=== PATIENT | female | born 1955 | race Caucasian/White ===

== ENCOUNTER → 2016-08-28 | Outpatient (CLI) | payer OTHER ==
--- NOTE | 2016-08-28 08:52 | CT ---
EXAMINATION TYPE: CT abdomen pelvis w con DATE OF EXAM: 08/28/2016 7:25 AM COMPARISON: NONE INDICATION: Ventral hernia DLP: 417.3 mGycm, Automated exposure control for dose reduction was used. CONTRAST: 100 mL of Omnipaque 300. Study performed with Oral Contrast TECHNIQUE: Axial images were obtained from above the diaphragm to the pubic rami in the axial plane a t 5 mm thick sections. Reconstructed images are reviewed on the computer in the coronal plane. FINDINGS: Limited CT sections are obtained the lung bases. The lung bases are clear. CT ABDOMEN: There is a large ventral hernia containing a loop of colon. This extends towards the maryan umbilical region from superiorly. Where the colon enters and exits the opening is 7 cm. No entrapment is evident. Liver: There are numerous hypodensities within the liver compatible with multiple hepatic cysts. Spleen: Normal Pancreas: Normal Adrenal glands: The adrenal glands are normal. Gallbladder: Normal Kidneys: No masses are evident. No hydronephrosis is present. There are cysts at the inferior pole left kidney better visualized on delayed images. Delayed images were obtained through the kidneys, w hich remain unremarkable. Aorta: Vascular calcification is within the aorta. Inferior vena cava: Normal. CT PELVIS: Loops of bowel within the abdomen and pelvis are normal. There are loops of bowel which are incom pletely distended or lack oral contrast limiting their evaluation. Appendix: Normal as visualized. Urinary bladder: Normal. Genitourinary structures: Uterus is normal. Adnexal regions are clear. No free fluid is within the pe lvis. Osseous structures: Old pelvic fractures evident. There may be some nonunion of an anterior left pubi c ramus fracture degenerative changes at sacroiliac joint IMPRESSIONS: 1. Multiple hepatic cyst. 2. Inferior pole left renal cyst. 3. Ventral hernia containing a loop of colon without evidence of obstruction at this time.
== END | disposition home or self-care (01) ==
LOC: RADCTMAIN 06:57
PROVIDERS: ATTEND Surgery
DX: K43.9 Ventral hernia without obstruction or gangrene (principal); N28.1 Cyst of kidney, acquired; K76.89 Other specified diseases of liver
CPT/HCPCS: 74177; Q9967

== ENCOUNTER 2016-09-19 06:26 | Observation (INO) | payer OTHER ==
[2016-09-12 09:52] VITALS: BMI 23.1
[~2016-09-19 06:26] MED LIST: DEXAMETHASONE SOD PHOSPHATE 10 MG/ML 1 ML VIAL IV ONE; FAMOTIDINE 20 MG/2 ML VIAL IV PRN; HEPARIN SODIUM,PORCINE 5,000 UNIT/ML 1 ML VIAL SQ ONE; HYDROmorphone 1 MG/ML 1 ML SYRINGE IVP PRN; LACTATED RINGERS 1,000 ML IV SCH; MIDAZOLAM 2 MG/2 ML VIAL IV PRN; SCOPOLAMINE 1.5MG/72HR PATCH TRANSDERM ONE
[2016-09-19] MEDS: LIDOCAINE 1% 20 ML VIAL (10MG/ML) FOR IV START INTRADERMA PRN ×2 (07:22→07:23)
[2016-09-19] MEDS ORDERED: ONDANSETRON 4 MG/2 ML VIAL IVP ONE (07:23)
[2016-09-19] MEDS ORDERED: ROCURONIUM BROMIDE 10 MG/ML 10 ML VIAL IV ONE (07:51)
[2016-09-19] MEDS ORDERED: HYDROmorphone (PF) 1 MG/ML ONE (07:51)
[2016-09-19] MEDS ORDERED: SUCCINYLCHOLINE CHLORIDE 100 MG/5 ML SYR IV ONE (07:51)
[2016-09-19] MEDS ORDERED: NEOSTIGMINE 1 MG/ML 10 ML VIAL ONE (07:51)
[2016-09-19] MEDS ORDERED: MIDAZOLAM 2 MG/2 ML VIAL ONE (07:51)
[2016-09-19] MEDS ORDERED: LIDOCAINE 1% INJ 10MG/ML (20 ML MDV) ONE (07:51)
[2016-09-19] MEDS ORDERED: GLYCOPYRROLATE 0.2 MG/ML 2 ML VIAL ONE (07:51)
[2016-09-19] MEDS ORDERED: PROPOFOL 10 MG/ML 20 ML VIAL IV ONE (07:51)
[2016-09-19] MEDS ORDERED: fentaNYL (PF) 50 MCG/ML 2 ML AMP ONE (07:51)
[2016-09-19] MEDS: ceFAZolin 2 GM in SODIUM CHLORIDE 0.9% 100 ML IVPB ONE ×2 (08:10→08:21)
[2016-09-19] MEDS ORDERED: BUPIVACAIN-EPI 0.25%-1:200,000 30 ML VIAL SQ ONE ×2 (08:20)
[2016-09-19] MEDS ORDERED: LACTATED RINGERS 1,000 ML IV ONE (09:34)
[2016-09-19] MEDS ORDERED: ONDANSETRON 4 MG/2 ML VIAL IVP PRN (12:23)
[2016-09-19] MEDS: SODIUM CHLORIDE 0.9% 1,000 ML IV SCH (13:38)
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
--- NOTE | 2016-09-19 13:41 | P.DS ---
Providers Date of admission: 09/19/16 Expected date of discharge: 09/20/16 Attending physician: Harriet De La Cruz Primary care physician: [facility] Course: 61 years old female presenting with large upper abdominal incisional hernia containing colon, small bowel and omentum. She underwent extensive lap scopic lysis of adhesions lasting more than 90 minutes and robotic assist ventral hernia repair with mesh. Patient was admitted for 23 hours for pain control. She was started on clear liquid diet and advanced as tolerated. At the time of discharge, patient is tolerating soft diet. She is ambulating in hallways. She is using incentive spirometry. Pain is well controlled Procedures: Laparoscopic extensive lysis of adhesions. Robotic-assisted laparoscopic ventral hernia repair with mesh Patient Condition at Discharge: Good Plan - Discharge Summary New Discharge Prescriptions: Docusate [Colace] 100 mg PO DAILY #30 capsule HYDROcodone/APAP 5-325MG [[place] 5-325] 1 - 2 tab PO Q4H PRN #40 tab PRN Reason: Pain Discharge Medication List Ibuprofen [Motrin] 600 mg PO Q6HR PRN 05/13/16 [History] Cholecalciferol [Vitamin D3] 1,000 unit PO DAILY 09/12/16 [History] Docusate [Colace] 100 mg PO DAILY #30 capsule 09/19/16 [Rx] HYDROcodone/APAP 5-325MG [[place] 5-325] 1 - 2 tab PO Q4H PRN #40 tab 09/19/16 [Rx ] Follow up Appointment(s)/Referral(s): Harriet De La Cruz MD [STAFF PHYSICIAN] - 09/30/16 10:40 am Patient Instructions/Handouts: *Surgery [facility] - (Anesthesia) Discharge Instructions Outpatient Surgery, Ventral Hernia (DC) Activity/Diet/Wound Care/Special Instructions: OK to shower . No soaking bath. No heavy lifting more than 10 lbs for 6 weeks post surgery. No driving while taking narcotics for pain. May use ice packs for local pain relief Take Motrin 600 mg po TID after meals if pain is not controlled Use incentive spirometry 10 times an hour while awake Discharge Disposition: HOME SELF-CARE
[2016-09-19] MEDS: HYDROmorphone 1 MG/ML 1 ML SYRINGE IVP PRN ×2 (16:09→20:31)
[2016-09-19] MEDS: HEPARIN SODIUM,PORCINE 5,000 UNIT/ML 1 ML VIAL SQ SCH (16:10)
[2016-09-19] MEDS: METOCLOPRAMIDE 5 MG/ML 2 ML VIAL IVP SCH (18:08)
[2016-09-19] MEDS: ACETAMINOPHEN IV (For NPO) 1,000 MG in EMPTY BAG 1 BAG IVPB SCH (18:12)
--- NOTE | 2016-09-19 20:06 | P.PN ---
Subjective Principal diagnosis: Ventral hernia Patient is postop day 0 status post robotic ventral hernia repair. Pain is well -controlled. She's tolerating diet. Objective - Vital Signs Vital signs: Vital Signs Temp 97.8 F 09/19/16 16:00 Pulse 88 09/19/16 16:00 Resp 18 09/19/16 16:00 BP 126/74 09/19/16 16:00 Pulse Ox 98 09/19/16 16:00 Intake & Output 09/19/16 09/19/16 09/20/16 06:59 18:59 06:59 Intake Total 2400 440 Output Total 625 Balance 1775 440 Intake: IV 2350 Oral 50 440 Output: Urine 600 Estimated Blood Loss 25 Other: # Voids 2 - Exam GENERAL: Well developed and in no acute distress. Pleasant. HEENT: No sclera icterus. Extraocular movements grossly intact. Moist buccal mucosa. Head is atraumatic, normocephalic. Hears conversational speech. No nasal drainage. NECK: Supple without lymphadenopathy. No JV distention. CHEST: Non-labored respirations and equal bilateral excursions. CARDIOVASCULAR: Regular rate and rhythm. Palpable 2+ radial pulses. ABDOMEN: Soft, nontender. Nondistended. Laparoscopic sites clean dry and intact. Abdominal binder was readjusted. MUSCULOSKELETAL: No clubbing, cyanosis or edema. NEUROLOGIC: No focal or lateralizing signs. PSYCH: Appropriate affect. Alert and oriented to person, place and time. Assessment and Plan (1) Ventral hernia Status: Acute (2) S/P ventral herniorrhaphy Status: Acute Plan: 1. Clinic she is doing well. 2. Discharge home the morning. 3. Follow-up with primary surgeon in the office.
[2016-09-20] MEDS: ACETAMINOPHEN IV (For NPO) 1,000 MG in EMPTY BAG 1 BAG IVPB SCH ×2 (00:10→06:17)
[2016-09-20] MEDS: HEPARIN SODIUM,PORCINE 5,000 UNIT/ML 1 ML VIAL SQ SCH (00:18)
[2016-09-20] MEDS: METOCLOPRAMIDE 5 MG/ML 2 ML VIAL IVP SCH ×2 (00:19→06:07)
[2016-09-20] MEDS: SODIUM CHLORIDE 0.9% 1,000 ML IV SCH (00:59)
[2016-09-20] MEDS: HYDROmorphone 1 MG/ML 1 ML SYRINGE IVP PRN (04:10)
[2016-09-20 08:09] VITALS: BP 99/65; PULSE 76; RESP 18; TEMP 97.9
== END 2016-09-20 08:30 | disposition home or self-care (01) ==
LOC: OR 06:26 → 6PED 11:45 → OR 21:10
PROVIDERS: ADMIT Surgery; ATTEND Surgery
DX: K43.0 Incisional hernia with obstruction, without gangrene (principal); K66.0 Peritoneal adhesions (postprocedural) (postinfection); Z87.891 Personal history of nicotine dependence
CPT/HCPCS: 49329; 49655; S2900; 86850; 86900; 86901; 96361; 96372; 96374; 96375; 96376

== ENCOUNTER → 2016-09-30 | Outpatient (CLI) | payer OTHER ==
--- NOTE | 2016-09-30 14:20 | XR ---
EXAMINATION TYPE: XR chest 2V DATE OF EXAM: 09/30/2016 12:31 PM COMPARISON: NONE HISTORY: Pneumonia, cough TECHNIQUE: Frontal and lateral views of the chest are obtained. FINDINGS: There is no focal air space opacity, pleural effusion, or pneumothorax seen. The cardiac silhouette size is within normal limits. The osseous structures are intact. IMPRESSION: No acute cardiopulmonary process.
== END | disposition home or self-care (01) ==
LOC: RADXRMAIN 12:09
PROVIDERS: ATTEND Surgery
DX: J18.9 Pneumonia, unspecified organism (principal)
CPT/HCPCS: 71020

== ENCOUNTER → 2017-04-02 | Outpatient (CLI) | payer OTHER ==
[2017-04-02 18:57] LABS: Basophils % (A) 1 %; CH 29.5; CHCM 31.9; Eosinophils # (A) 0.1 k/uL (0-0.7); Eosinophils % (A) 1 %; HCT 44.5 % (34.0-46.0); HDW 2.17; Luc # (Auto) 0.13; Luc % (Auto) 3; Lymphocytes # (A) 1.6 k/uL (1.0-4.8); Lymphocytes % (A) 34 %; MCH 29.3 pg (25.0-35.0); MCHC 31.5 g/dL (31.0-37.0); MCV 92.8 fL (80.0-100.0); Mean Platelet Volume 8.8; Monocytes # (A) 0.3 k/uL (0-1.0); Monocytes % (A) 6 %; Neutrophils # (A) 2.6 k/uL (1.3-7.7); Neutrophils % (A) 56 %; RBC 4.79 m/uL (3.80-5.40); WBC 4.7 k/uL (3.8-10.6); WBC (Perox) 4.71
[2017-04-02 19:01] LABS: ALT 29 U/L (9-52); AST 20 U/L (14-36); Alkaline Phosphatase 61 U/L (38-126); Anion Gap 9 mmol/L; Blood Urea Nitrogen 14 mg/dL (7-17); Calcium 9.7 mg/dL (8.4-10.2); Carbon Dioxide 29 mmol/L (22-30); Chloride 105 mmol/L (98-107); Cholesterol 211 mg/dL (<200); Glucose 96 mg/dL (74-99); HDL Cholesterol 65 mg/dL (40-60); Non-African American GFR(MDRD) >60 (>60 ml/min/1.73 sqM); Potassium 4.9 mmol/L (3.5-5.1); Sodium 143 mmol/L (137-145); Total Bilirubin 0.6 mg/dL (0.2-1.3); Total Protein 7.1 g/dL (6.3-8.2)
== END ==
LOC: MMGSC 08:25
PROVIDERS: ATTEND Family Medicine
DX: Z00.00 Encounter for general adult medical examination without abnormal findings (principal); E55.9 Vitamin D deficiency, unspecified
CPT/HCPCS: 36415; 80053; 80061; 82306; 84439; 84443; 85025

== ENCOUNTER → 2017-06-23 | Outpatient (CLI) | payer OTHER | LOC: MMGSC 16:17 | PROVIDERS: ATTEND Family Medicine | DX: B35.4 Tinea corporis (principal) | CPT/HCPCS: 87070; 87205 ==

== ENCOUNTER 2018-06-08 10:26 | Day surgery (SDC) | payer OTHER ==
[2018-06-03 12:00] VITALS: BMI 24.9
[~2018-06-08 10:26] MED LIST changes: -DEXAMETHASONE SOD PHOSPHATE 10 MG/ML 1 ML VIAL IV ONE; -FAMOTIDINE 20 MG/2 ML VIAL IV PRN; -HEPARIN SODIUM,PORCINE 5,000 UNIT/ML 1 ML VIAL SQ ONE; -HYDROmorphone 1 MG/ML 1 ML SYRINGE IVP PRN; -MIDAZOLAM 2 MG/2 ML VIAL IV PRN; -SCOPOLAMINE 1.5MG/72HR PATCH TRANSDERM ONE
[2018-06-08 10:45] VITALS: RESP 16; TEMP 98.3
[2018-06-08] MEDS ORDERED: LIDOCAINE 1% 20 ML VIAL (10MG/ML) FOR IV START INTRADERMA ONE (10:51)
[2018-06-08] MEDS ORDERED: LIDOCAINE 1% INJ 10MG/ML (20 ML MDV) ONE (11:03)
[2018-06-08] MEDS ORDERED: PROPOFOL 10 MG/ML 20 ML VIAL IV ONE (11:03)
[2018-06-08 11:45] VITALS: BP 124/64; PULSE 75
--- NOTE | 2018-06-08 11:47 | P.PCN ---
Date of Procedure: 06/08/18 Procedure(s) Performed: Procedure: Total colonoscopy. Preoperative diagnosis: Screening for neoplasia. Postoperative diagnosis: Exam within normal limits. Preparation: HalfLytely prep. Sedation: Was provided by anesthesia. Brief clinical history: The patient is 63-year-old female who is scheduled for this evaluation for screening for neoplasia age being her risk factor. She had a prior exam around 7 years ago. At this time, she has no abdominal complaints , bleeding or anemia. Procedure: With the patient on her left lateral decubitus position and after informed consent and adequate sedation, the perianal area was inspected and it did not show any fissures or fistulas. He were no masses felt on digital rectal examination. The Olympus CFH 190L video colonoscope was then inserted in the rectum in the usual fashion and advanced to the cecum. The mucosa appeared healthy. No polyps or tumors were seen or any obvious diverticular disease or other pathology. I retroflexed the endoscope in the rectum before the endoscope was withdrawn. The patient tolerated the procedure well Plan: The patient was reassured. She will follow-up with you as planned and I recommended repeat exam in 10 years.
== END 2018-06-08 12:06 | disposition home or self-care (01) ==
LOC: ORWHC2ENDO 10:26
DX: Z12.11 Encounter for screening for malignant neoplasm of colon (principal); Z87.891 Personal history of nicotine dependence
CPT/HCPCS: J2001; J2704; G0121

== ENCOUNTER → 2021-01-01 | Outpatient (CLI) | payer OTHER ==
--- NOTE | 2021-01-04 10:53 | MM ---
Reason for exam: screening (asymptomatic). Last mammogram was performed 4 years and 7 months ago. History: Patient is postmenopausal. Took hormonal contraceptives for 8 years beginning at age 22. Physical Findings: A clinical breast exam by your physician is recommended on an annual basis and results should be correlated with mammographic findings. MG 3D Screening Mammo W/Cad Bilateral CC and MLO view(s) were taken. Prior study comparison: June 04, 2016, bilateral MG 3d screening mammo w/cad. April 02, 2015, mammogram, performed at [facility]. There are scattered fibroglandular densities. There are benign appearing round calcifications bilaterally. There is no discrete abnormality. ASSESSMENT: Benign, BI-RAD 2 RECOMMENDATION: Routine screening mammogram of both breasts in 1 year.
== END | disposition home or self-care (01) ==
LOC: RADMAMWWP 11:09
PROVIDERS: ATTEND Family Medicine
DX: Z12.31 Encounter for screening mammogram for malignant neoplasm of breast (principal); Z78.0 Asymptomatic menopausal state
CPT/HCPCS: 77063; 77067

== ENCOUNTER → 2021-11-13 | Outpatient (CLI) | payer OTHER ==
--- NOTE | 2021-11-13 10:17 | MM ---
Reason for exam: clinical finding. Last mammogram was performed 10 months ago. History: Patient is postmenopausal. Took hormonal contraceptives for 8 years beginning at age 22. Indicated problem(s): pain in the left breast. Physical Findings: A clinical breast exam by your physician is recommended on an annual basis and results should be correlated with mammographic findings. MG 3D Diag Mammo W/Cad YAZAN Bilateral CC and MLO view(s) were taken. Technologist: Demetrice Gan RT (R)(M) Prior study comparison: January 01, 2021, bilateral MG 3d screening mammo w/cad. July 05, 2019, mammogram, performed at [facility]. June 28, 2018, mammogram, performed at [facility]. There are scattered fibroglandular densities. There is no discrete abnormality including area of concern at 12 o'clock burning area and 3 o'clock lumpiness area. Results were given to the patient verbally at the time of the exam. ASSESSMENT: Benign, BI-RAD 2 RECOMMENDATION: Routine screening mammogram of both breasts in 1 year.
== END | disposition home or self-care (01) ==
LOC: RADMAMWWP 07:04
PROVIDERS: ATTEND Family Medicine
DX: N64.4 Mastodynia (principal); N63.0 Unspecified lump in unspecified breast
CPT/HCPCS: 77062; 77066

== ENCOUNTER → 2022-12-02 | Outpatient (CLI) | payer MEDICARE, BC ==
--- NOTE | 2022-12-03 20:49 | MM ---
Reason for Exam: Screening (asymptomatic). Last mammogram was performed 1 year(s) and 1 month(s) ago. Patient History: Menarche at age 15. First Full-Term at age 19. Postmenopausal. Hormonal Contraceptives for 8 years from age 22 until age 30. Risk Values: Maria D 5 year model risk: 1.2%. NCI Lifetime model risk: 4.6%. Prior Study Comparison: 07/05/2019 Screening Mammogram, [facility]. 01/01/2021 Bilateral Screening Mammogram, [facility]. 11/13/2021 Bilateral Diagnostic Mammogram, [facility]. Tissue Density: There are scattered fibroglandular densities. Findings: Analyzed By CAD. There is no suspicious group of microcalcifications or new suspicious mass in either breast. Overall Assessment: Benign, BI-RAD 2 Management: Screening Mammogram of both breasts in 1 year. . Patient should continue monthly self-breast exams. A clinical breast exam by your physician is recommended on an annual basis. This exam should not preclude additional follow-up of suspicious palpable abnormalities. Note on Maria D scores and lifetime risk: 1. A Maria D score greater than 3% is considered moderate risk. If this is the case, consider specialist referral to assess eligibility for a risk reducing agent. 2. If overall lifetime risk for the development of breast cancer is 20% or higher, the patient may qualify for future screening with alternating mammogram and breast MRI. Electronically signed and approved by: Estefania Bartlett M.D. Radiologist
== END | disposition home or self-care (01) ==
LOC: RADMAMWWP 12:50
PROVIDERS: ATTEND Family Medicine
DX: Z12.31 Encounter for screening mammogram for malignant neoplasm of breast (principal); Z78.0 Asymptomatic menopausal state
CPT/HCPCS: 77063; 77067

== ENCOUNTER → 2023-11-26 | Outpatient (CLI) | payer MEDICARE, BC ==
--- NOTE | 2023-11-26 14:33 | CTL ---
EXAMINATION TYPE: CT Low Dose Lung DATE OF EXAM ORDERED: 11/26/2023 HISTORY: Lung cancer screening Automated exposure control for dose reduction was used. SCREENING VISIT: First COMPARISON: None TECHNIQUE: Low dose computed tomography scan was performed through the chest at 1 mm thick sections a nd reconstructed images in multiple planes at 1 mm and [address] DIAGNOSTIC QUALITY: Satisfactory FINDINGS: There are mild emphysematous changes. There is a 6.2 mm right upper lobe nodule with angular margins. There are 2 micronodules in the right lower lobe. There is no abnormal airspace/consolidative density or abnormal interstitial density. There is no pleural effusion, pleural thickening or pneumothorax. The great vessels of the chest are normal but there is no mediastinal, hilar or axillary adenopathy. . Limited scanning through the upper abdomen reveals multiple somewhat ill-defined hypodensities within the liver. They have increased in size and number compared to CT of the abdomen and pelvis dated 08/04. Based on Hounsfield density measurements, these appear to represent cysts but given their in creased number and size, MRI of the liver is recommended for further evaluation. No focal osseous lesions are seen. IMPRESSION: 1. BI-RADS Category 3, probably benign. Follow-up in 6 months is recommended. 2. Increased size and number of hypodensities within liver most likely representing cysts but MRI of the liver is recommended for confirmation.
== END | disposition home or self-care (01) ==
LOC: RADCTMAIN 08:08
PROVIDERS: ATTEND Family Medicine
DX: Z12.2 Encounter for screening for malignant neoplasm of respiratory organs (principal); K76.89 Other specified diseases of liver; Z87.891 Personal history of nicotine dependence
CPT/HCPCS: 71271

== ENCOUNTER → 2023-12-04 | Outpatient (CLI) | payer MEDICARE, BC ==
--- NOTE | 2023-12-07 19:30 | MM ---
Reason for Exam: Screening (asymptomatic). Last screening mammogram was performed 12 month(s) ago. Patient History: Menarche at age 15. First Full-Term at age 19. Postmenopausal. Hormonal Contraceptives for 8 years from age 22 until age 30. Risk Values: Maria D 5 year model risk: 1.2%. NCI Lifetime model risk: 4.4%. Prior Study Comparison: 01/01/2021 Bilateral Screening Mammogram, [facility]. 11/13/2021 Bilateral Diagnostic Mammogram, [facility]. 12/02/2022 Bilateral MG 3D screening mammo w/cad, [facility]. Tissue Density: There are scattered areas of fibroglandular density. Findings: Analyzed By CAD. There is no suspicious group of microcalcifications or new suspicious mass in either breast. Overall Assessment: Negative, BI-RAD 1 Management: Screening Mammogram of both breasts in 1 year. . Patient should continue monthly self-breast exams. A clinical breast exam by your physician is recommended on an annual basis. This exam should not preclude additional follow-up of suspicious palpable abnormalities. Note on Maria D scores and lifetime risk: 1. A Maria D score greater than 3% is considered moderate risk. If this is the case, consider specialist referral to assess eligibility for a risk reducing agent. 2. If overall lifetime risk for the development of breast cancer is 20% or higher, the patient may qualify for future screening with alternating mammogram and breast MRI. Electronically signed and approved by: Estefania Bratlett M.D. Radiologist
== END | disposition home or self-care (01) ==
LOC: RADMAMWWP 10:35
PROVIDERS: ATTEND Family Medicine
DX: Z12.31 Encounter for screening mammogram for malignant neoplasm of breast (principal); Z78.0 Asymptomatic menopausal state
CPT/HCPCS: 77063; 77067

== ENCOUNTER → 2024-01-02 | Outpatient (CLI) | payer MEDICARE, BC ==
--- NOTE | 2024-01-04 16:43 | MR ---
EXAMINATION TYPE: MR liver wo/w con DATE OF EXAM: 01/02/2024 2:51 PM CLINICAL INDICATION:Female, 68 years old with history of K76.89 OTHER SPECIFIED DISEASES OF LIVER, Ab normal CT COMPARISON: CT scan abdomen from 11/26/2023 TECHNIQUE: Multiplanar multi-sequence imaging was performed without contrast. Post contrast imaging was performed. Post IV contrast subtraction images were also submitted for review. IV Contrast: 6 cc Gadavist FINDINGS: LOWER CHEST: No gross irregularity. ABDOMEN Liver: No evidence for cirrhosis. Scattered high T2 signal cysts are seen throughout the liver. Some of the cysts have thin septations noted. Mild signal dropout, which is out of phase imaging. No enhan cing masses visualized. Gallbladder and Bile ducts: No evidence for choledocholithiasis. There is prominence of the common bi le duct up to 7 mm which is within normal limits for patient's age. The gallbladder is nondistended. Pancreas: No ductal dilation. No evidence for solid mass. Spleen: Normal for size. Adrenal glands: Unremarkable. Kidneys: No evidence for obstructive uropathy. No suspicious renal masses. There is a 9 mm inferior l eft renal pole low T2 lesion activity 1 signal lesion without postcontrast enhancement compatible wit h hemorrhagic/proteinaceous cyst. Stomach and Bowel: No evidence for bowel wall thickening or evidence for obstruction. Retroperitoneum/Peritoneum: No evidence of pneumoperitoneum or free fluid. Vasculature: No aortic aneurysm. Musculoskeletal: The osseous structures appear intact. Multiple sacral peripelvic cysts on the left m easuring up to 18 x 31 mm. Lymph Nodes: No gross evidence for lymphadenopathy. Abdominal wall: Unremarkable. IMPRESSION: 1. Scattered hepatic cysts some of which have thin septations. No suspicious solid hepatic neoplasm. 2. Left renal 9 mm proteinaceous/hemorrhagic cysts Bosniak type II equivalent. 3. Mild hepatic steatosis.
== END | disposition home or self-care (01) ==
LOC: RADMRIMAIN 14:00
PROVIDERS: ATTEND Family Medicine
DX: K76.89 Other specified diseases of liver (principal); K76.0 Fatty (change of) liver, not elsewhere classified; N28.1 Cyst of kidney, acquired; R58 Hemorrhage, not elsewhere classified
CPT/HCPCS: 74183; A9585

== ENCOUNTER → 2024-05-30 | Outpatient (CLI) | payer MEDICARE, BC ==
--- NOTE | 2024-05-30 12:06 | CTL ---
EXAMINATION TYPE: CT Low Dose Lung DATE OF EXAM ORDERED: 05/30/2024 HISTORY: 69-year-old female R91.1, pulmonary nodule. Former smoker, quit 2010. 60 pack year history. Lung cancer screening CT DLP: 77.[address] CTDI: 2.2 mGy Automated exposure control for dose reduction was used. SCREENING VISIT: Six-month follow-up COMPARISON: 11/26/2023 TECHNIQUE: Low dose computed tomography scan was performed through the chest at 1 mm thick sections a nd reconstructed images in multiple planes at 1 mm and [address] DIAGNOSTIC QUALITY: Satisfactory FINDINGS: Heart normal size without pericardial effusion. Aorta normal caliber with conventional chest branching anatomy. Atherosclerotic arch calcifications. No thoracic lymphadenopathy by CT size criteria. There are a couple punctate 2 to 3 mm pulmonary nodules right lower lobe, axial image 149 which are u nchanged. 9 mm irregular pulmonary nodule right upper lobe, axial image 115 previously measured 8 mm No other suspicious pulmonary nodule. No consolidation or pleural effusion. Visualized upper abdomen shows multiple hepatic cysts measuring up to 2.1 cm. 4 mm nonobstructive lef t renal stone. No osseous destructive process. IMPRESSION: 1. LungRADS 3, probably benign. A 9 mm irregular pulmonary nodule in the right upper lobe is fairly s table over the last 6 months having increased by only 1 mm. Additional 6 month follow-up recommended. 2. 4 mm nonobstructive left renal stone. Benign hepatic cysts measuring up to 2.[address] LUNG RAD AND CT CHEST RECOMMENDATION: Lung-Rad 3 Probably Benign: 6 month follow-up LDCT. S Modifier (other clinically significant findings): None [facility], , 05/30/2024 12:04 PM
== END | disposition home or self-care (01) ==
LOC: RADCTMAIN 09:10
PROVIDERS: ATTEND Family Medicine
CPT/HCPCS: 71271

== ENCOUNTER → 2024-12-15 | Outpatient (CLI) | payer MEDICARE, BC ==
--- NOTE | 2024-12-15 10:18 | MM ---
Reason for Exam: Screening (asymptomatic). Last screening mammogram was performed 12 month(s) ago. Patient History: Menarche at age 15. First Full-Term at age 19. Postmenopausal. Hormonal Contraceptives for 8 years from age 22 until age 30. Risk Values: Maria D 5 year model risk: 1.2%. NCI Lifetime model risk: 4.2%. Prior Study Comparison: 11/13/2021 Bilateral Diagnostic Mammogram, [facility]. 12/02/2022 Bilateral MG 3D screening mammo w/cad, [facility]. 12/04/2023 Bilateral MG 3D screening mammo w/cad, [facility]. Tissue Density: There are scattered areas of fibroglandular density. Findings: Analyzed By CAD. Benign-appearing bilateral axillary lymph nodes are redemonstrated. There is no suspicious group of microcalcifications or new suspicious mass in either breast. Overall Assessment: Negative, BI-RAD 1 Management: Screening Mammogram of both breasts in 1 year. . Patient should continue monthly self-breast exams. A clinical breast exam by your physician is recommended on an annual basis. This exam should not preclude additional follow-up of suspicious palpable abnormalities. Note on Mariad scores and lifetime risk: 1. A Maria D score greater than 3% is considered moderate risk. If this is the case, consider specialist referral to assess eligibility for a risk reducing agent. 2. If overall lifetime risk for the development of breast cancer is 20% or higher, the patient may qualify for future screening with alternating mammogram and breast MRI. [facility], , 12/15/2024 10:14 AM. Electronically signed and approved by: Isaias Rosenbaum M.D.
== END | disposition home or self-care (01) ==
LOC: RADMAMWWP 09:47
PROVIDERS: ATTEND Family Medicine
DX: Z12.31 Encounter for screening mammogram for malignant neoplasm of breast (principal); R92.323 Mammographic fibroglandular density, bilateral breasts; Z78.0 Asymptomatic menopausal state; Z92.0 Personal history of contraception
CPT/HCPCS: 77063; 77067

== ENCOUNTER → 2024-12-19 | Outpatient (CLI) | payer MEDICARE, BC ==
--- NOTE | 2024-12-19 11:04 | CTL ---
EXAMINATION TYPE: CT Low Dose Lung DATE OF EXAM ORDERED: 12/19/2024 COMPARISON: Prior CT May 30, 2024 and older CTs. CLINICAL INDICATION: Female, 69 years old with history of R91.1 SOLITARY PULMONARY NODULE; PHH, Solit ciara pulmonary nodule., Lung cancer screening, History of Smoking/tobacco use. TECHNIQUE: Low dose computed tomography scan was performed through the chest at 1 mm thick sections a nd reconstructed images in multiple planes at 1 mm and [address] DLP: 80.[address] CTDI: 2.2 mGy Automated exposure control for dose reduction was used. CT DIAGNOSTIC QUALITY: Satisfactory FINDINGS: Nodules: Stable 9 mm right upper lobe pulmonary nodule axial image 128. No new greater than 4 mm pulm onary nodules. LUNGS: COPD: Severity: Mild Fibrosis: Severity: None Lymph nodes: None Other findings: None RIGHT PLEURAL SPACE: Effusion: None Calcification: None Thickening: None Pneumothorax: None LEFT PLEURAL SPACE: Effusion: None Calcification: None Thickening: None Pneumothorax: None HEART: Heart Size: Normal Coronary Calcification: None Pericardial Effusion: None OTHER FINDINGS: Upper abdomen: Several thin-walled cysts scattered throughout The liver are redemonstrated that do no t require follow-up. Stable 3 mm nonobstructing left renal calculus. Bony thorax: None Supraclavicular region: None Other: None IMPRESSION: No new or enlarging greater than 4 mm pulmonary nodules. Stable 9 mm right upper lobe pul monary nodule. CT LUNG RAD AND CT CHEST RECOMMENDATION: Lung-Rad 2 Benign Appearance or Behavior: Continue annual sc reening with LDCT in 12 months. S Modifier (other clinically significant findings): None [facility], , 12/19/2024 11:02 AM
== END | disposition home or self-care (01) ==
LOC: RADCTMAIN 10:06
PROVIDERS: ATTEND Family Medicine
DX: Z12.2 Encounter for screening for malignant neoplasm of respiratory organs (principal); R91.1 Solitary pulmonary nodule; Z87.891 Personal history of nicotine dependence
CPT/HCPCS: 71271